=== PATIENT | female | born 1975 | race Caucasian/White ===

== ENCOUNTER 2019-09-02 00:20 | Outpatient (CLI) | payer OTHER, SELFPAY ==
[2019-09-03 00:19] LABS: SARS-CoV-2 RNA PCR Negative
== END 2019-09-02 00:21 | disposition home or self-care (01) ==
LOC: ANHCOVIDDT 00:21
PROVIDERS: Anesthesiology; PCP Internal Medicine; Visit Provider Urology
DX: Z01.818 Encounter for other preprocedural examination (principal); Z11.59 Encounter for screening for other viral diseases
CPT/HCPCS: 87635; C9803; U0003

== ENCOUNTER 2019-09-05 01:40 | Day surgery (SDC) | payer OTHER, SELFPAY ==
[2019-08-23 15:07] VITALS: BMI 34.7
--- NOTE | 2019-09-05 07:21 | WPDHPUPDATE1 ---
History and Physical Update Update Date/Time: 09/05/19 07:21 History and Physical has been reviewed, including an updated exam of the patient. There are NO changes in the patient's condition. Risks, benefits, and alternatives have been discussed and questions answered. Patient agrees to proceed with procedure.
[2019-09-05 10:10] VITALS: BP 133/84; PULSE 69; RESP 16; TEMP 36.4; O2SAT 99; BMI 37.5
[2019-09-05] MEDS: LACTATED RINGERS 1,000 ML 30 ML IV CONT (10:10)
--- NOTE | 2019-09-05 10:31 | PM.PROC ---
Procedure Note - Detailed Pre-op diagnosis: stress incontinence Stress urinary incontinence Post-op diagnosis: same Procedure performed: Transobturator Mid-urethral sling Cystoscopy Description of procedure: This is a patient with confirmed stress urinary incontinence. She desires correction. She understands the risks of bleeding, infection, damage to the urinary tract, lack of cure of stress incontinence, recurrence of stress incontinence, postoperative voiding dysfunction including incontinence and retention, need for ancillary procedures to loosen remove the sling, postoperative voiding dysfunction including retention and overactive bladder, hip and leg pain, dyspareunia, mesh related complications including exposure and extrusion. She agrees to proceed. She understands it will not help overactive bladder symptoms if present. She was correctly identified and informed consent obtained. She is brought to the operating room. She was given appropriate anesthesia. She was placed in the dorsal lithotomy position. All pressure points were padded. She was given appropriate perioperative antibiotics and a time-out performed. A Meyers catheter is placed. I marked out the thigh incisions anesthetize the skin and made those incisions. I anesthetized the anterior vaginal wall over the mid urethra. I made a 1 cm incision. I dissected out laterally taking great care not to injure the urethra or the vaginal wall. Passed the helical trocars 1st on the left and then on the right from the thigh incision towards the vaginal incision. Sling was connected to the trocars and brought out through the thigh incision. I tensioned the sling appropriately. I cut and removed the plastic sheaths. I closed the incision with 2 0 Vicryl. I then performed cystoscopy. There was no surgical artifact or abnormalities inside the bladder. The urethra was normal without surgical artifact. I cut the excess sling material. I closed the incisions with glue. She was awakened and transferred to the PACU in stable condition. Implants: Mid urethral sling Surgeon: Sarabjit Godinez MD Drains: No Packing: No Pathology: none sent Complications: No immediate complications Condition: stable Disposition: PACU
--- NOTE | 2019-09-05 10:35 | WPDANESEPPF ---
Anes - Initial Pre Proc Eval Procedure: Operation Date: 09/05/19 11:15 Proposed Procedures p Urethral Sling - Sarabjit Godinez MD Date/Time: 09/05/19 10:35 Surgeon: Sarabjit Godinez MD Pre Op Diagnosis: stress incontinence Patient Data Age: 44 Gender: F Height: 5 ft 10 in Weight: 110 kg Allergies Allergy/AdvReac Type Severity Reaction Status Date / Time No Known Allergies Allergy Unknown Verified 09/05/19 10:33 Home Medications Medication Instructions Recorded Confirmed Type doxycycline hyclate 100 mg PO DAILY 08/23/19 09/05/19 History Patient hx anesthesia problems: none Family hx anesthesia problems: none PMFSH Social History Social History Gender identity (if verbalized by the patient): Female Anes - Eval Final PreProcedure Day of Procedure 09/05/19 10:35 Patient weight: obese Heart: regular rate and rhythm Lungs: clear to auscultation Airway: Mallampati scale class II Neurological: alert and oriented Last oral intake: >/= 8 hours ASA classification: II Emergent: no Anesthetic plan: proceed Anesthesia type and monitoring: general GIVS and standard monitoring Informed Consent: The patient's anesthetic plan and its attendant risks and benefits were discussed with the patient/family/POA. Questions were solicited and answers provided to the satisfaction of the patient/family/POA.
[2019-09-05] MEDS: ceFAZolin 2 GM/D5W 50 ML 2 GM/50 ML BAG IVPB (10:43)
[2019-09-05] MEDS: BUPIVACAINE/EPINEPHRINE 0.25% 50 ML VIAL 10 ML INFILTRATE (10:59)
[2019-09-05 11:20] VITALS: BP 104/63; PULSE 71; RESP 14; O2SAT 94
[2019-09-05 11:50] VITALS: BP 124/69; PULSE 63; RESP 14; O2SAT 95
[2019-09-05 12:20] VITALS: BP 133/83; PULSE 61; RESP 14; O2SAT 97
== END 2019-09-05 12:29 | disposition home or self-care (01) ==
PROVIDERS: PCP Internal Medicine; Visit Provider Urology
PROC: (CPT 57288; principal; 2019-09-05 11:15)
DX: N39.3 Stress incontinence (female) (male) (principal); E66.9 Obesity, unspecified; Z68.37 Body mass index [BMI] 37.0-37.9, adult
CPT/HCPCS: 57288; 87635; A9270; C1771; C9803; J0690; J2250; J3010; J7030; J7120; U0003

== ENCOUNTER 2022-08-19 14:30 | Outpatient (CLI) | payer OTHER, SELFPAY ==
--- NOTE | 2022-08-19 | ECHO_ITS ---
Patient Info Name: Arlet Lechuga Age: 47 years : 1975 Gender: Female Ht: 70 in Wt: 260 lbs BSA: 2.46 m2 HR: 69 bpm BP: 146 / 94 mmHg Heart Rhythm: Sinus Rhythm Technical Quality: Fair Exam Date: 08/19/2022 2:46 PM Exam Location: [facility] Patient Status: Outpatient Admit Date: 08/19/2022 Staff Ordering Physician: PeterXavier MD Food Stylist: Yas Doran RDCS Attending Provider: BrunaXavier MD Exam Type: CA echo doppler color flow Study Info Indications - EDEMA Complete two-dimensional, color flow and Doppler transthoracic echocardiogram is performed. Summary 1. Complete two-dimensional, color flow and Doppler transthoracic echocardiogram is performed. 2. Left ventricular chamber dimension is normal. 3. Left ventricular systolic function is normal, estimated at 65-70%. 4. There is mildly increased left ventricular wall thickness. 5. The left ventricular diastolic function is grade I diastolic dysfunction. 6. Right ventricular systolic function is normal. 7. Left atrial chamber dimension is mildly enlarged. 8. There is trace mitral valve regurgitation. 9. There is mild tricuspid valve regurgitation. Left Ventricle Left ventricular chamber dimension is normal. Left ventricular systolic function is normal, estimated at 65-70%. There is mildly increased left ventricular wall thickness. The left ventricular diastolic function is grade I diastolic dysfunction. Right Ventricle Right ventricular chamber dimension is normal. Right ventricular systolic function is normal. Left Atria Left atrial chamber dimension is mildly enlarged. Right Atria Right atrial chamber dimension is normal. Aortic Valve The aortic valve is probable trileaflet. There is no aortic valve stenosis. There is no aortic valve regurgitation. Pulmonic Valve The pulmonic valve is not well visualized. Mitral Valve The mitral valve has thickened leaflets. There is trace mitral valve regurgitation. Tricuspid Valve There is mild tricuspid valve regurgitation. Pericardium/Pleural There is no pericardial effusion. Inferior Vena Cava Inferior vena cava is not well visualized. Aorta The aortic root size at the sinus of Valsalva is normal. Left Ventricular Outflow Tract Name Value Normal LVOT 2D LVOT Diameter 2.1 cm LVOT Doppler LVOT Peak Gradient 3 mmHg LVOT Mean Gradient 1 mmHg LVOT VTI 18 cm LVOT VTI/AV VTI Ratio 0.8 LVOT Stroke Volume 63 ml LVOT CO 4.2 l/min LVOT CI 1.7 l/min/m2 Pulmonic Valve Name Value Normal RVOT Doppler RVOT Peak Gradient 2 mmHg PV Doppler PV Peak Gradient 1 mmHg Mitral Valve
== END 2022-08-19 14:31 | disposition home or self-care (01) ==
PROVIDERS: PCP Internal Medicine; Visit Provider Internal Medicine
DX: R60.9 Edema, unspecified (principal); I07.1 Rheumatic tricuspid insufficiency
CPT/HCPCS: 93306

== ENCOUNTER 2023-03-26 05:51 | Day surgery (SDC) | payer OTHER, SELFPAY ==
[2023-02-10 13:22] VITALS: BMI 38.0
[2023-03-10 10:13] VITALS: BMI 37.3
[2023-03-26 06:46] VITALS: BP 128/92; PULSE 77; RESP 14; TEMP 36.7; O2SAT 99
[2023-03-26] MEDS: LACTATED RINGERS 1,000 ML 150 ML IV CONT (06:55)
--- NOTE | 2023-03-26 07:12 | P.HP_ITS ---
History of Present Illness History of Present Illness Consent: Risks, benefits, and alternatives have been discussed and questions answered. Patient agrees to proceed with procedure. Chief complaint: Neoplasm Screening Narrative: Arlet Lechuga is a 47 year old female presents for screening colonoscopy. Patient's current weight appetite and bowel movements are normal. Patient denies abdominal pain. She has had no bleeding. Family history noncontributory. Review of Systems Review of Systems: Review of systems noncontributory. [facility] Past Medical History Medical History Acne Screening mammogram, encounter for Surgical History Surgical History History of appendectomy (~1997) History of bladder suspension procedure (~08/2019) Family History Family History Mother Hypertension Father Deep vein thrombosis Cardiac pacemaker in situ Social History Social History Smoking status: Never smoker Alcohol intake: never Substance use: never Substance use type: does not use Living arrangements: with family Additional living arrangements comments: Occupation/Education: occupation Additional occupation/education comments: payroll Gender identity (if verbalized by the patient): Female Sexual Orientation (if Verbalized by the Patient): Straight or Heterosexual Spiritual care concerns: No Meds Home Medications and Allergies Home Medications Medication Instructions Recorded Confirmed Type doxycycline hyclate 100 mg capsule 100 mg PO DAILY 08/23/19 03/26/23 History Adults Multivitamin 1 tablet PO DAILY 03/10/23 03/26/23 History Allergies Allergy/AdvReac Type Severity Reaction Status Date / Time No Known Allergies Allergy Unknown Verified 03/26/23 06:41 Vital Signs Vital Signs - 24 hr 03/26/23 06:46 Temperature 98.0 F Pulse Rate 77 Respiratory Rate 14 Blood Pressure 128/92 H Pulse Oximetry 99 Oxygen Delivery Room Air Exam Narrative: Physical exam reveals patient to be alert. L signs stable. HEENT exam is unremarkable. Patient is anicteric. Lungs are clear to auscultation and percussion heart is without murmur or extra sounds. Abdomen bowel sounds are present soft nontender with no or megaly. Digital external rectal exam is normal. Assessment and Plan Assessment and plan (1) Encounter for screening colonoscopy: Code(s): Z12.11 - Encounter for screening for malignant neoplasm of colon Status: Acute Assessment and Plan: Presents today for screening colonoscopy. She appears to be at average risk for colon polyps. Further recommendations may be given after endoscopy.
--- NOTE | 2023-03-26 07:23 | WPDANESEPPF ---
Anes - Initial Pre Proc Eval Procedure: Operation Date: 03/26/23 08:00 Proposed Procedures p Screening Colonoscopy - Roni Lopez MD Date/Time: 03/26/23 07:23 Surgeon: Roni Lopez MD Pre Op Diagnosis: Neoplasm Screening Patient Data Age: 47 Gender: F Height: 1.78 m Weight: 120 kg Last Vital Signs Temp 36.7 C 03/26/23 06:46 Pulse 77 03/26/23 06:46 Resp 14 03/26/23 06:46 BP 128/92 H 03/26/23 06:46 Pulse Ox 99 03/26/23 06:46 O2 Del Method Room Air 03/26/23 06:46 Allergies Allergy/AdvReac Type Severity Reaction Status Date / Time No Known Allergies Allergy Unknown Verified 03/26/23 06:41 Home Medications Medication Instructions Recorded Confirmed Type doxycycline hyclate 100 mg capsule 100 mg PO DAILY 08/23/19 03/26/23 History Adults Multivitamin 1 tablet PO DAILY 03/10/23 03/26/23 History Patient hx anesthesia problems: none Family hx anesthesia problems: none Results Review: All pre-operative results and documents have been reviewed as part of the pre-operative evaluation. 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 Gender identity (if verbalized by the patient): Female Sexual Orientation (if Verbalized by the Patient): Straight or Heterosexual Spiritual care concerns: No Anes - Eval Final PreProcedure Day of Procedure 03/26/23 07:23 Patient weight: obese Heart: regular rate and rhythm Lungs: clear to auscultation Airway: Mallampati scale class II Neurological: alert and oriented Last oral intake: >/= 8 hours ASA classification: II Emergent: no Anesthetic plan: proceed Anesthesia type and monitoring: general GIVS and standard monitoring Results Review: All pre-operative results and documents have been reviewed as part of the pre-operative evaluation. Informed Consent: The patient's anesthetic plan and its attendant risks and benefits were discussed with the patient/family/POA. Questions were solicited and answers provided to the satisfaction of the patient/family/POA.
[2023-03-26 07:52] VITALS: BP 92/60; PULSE 77; RESP 14; O2SAT 98
[2023-03-26 08:02] VITALS: BP 130/92; PULSE 65; RESP 14; O2SAT 100
[2023-03-26 08:12] VITALS: BP 136/84; PULSE 65; RESP 14; O2SAT 100
--- NOTE | 2023-03-26 08:34 | SUR.PHASEII ---
0830 Ready for discharge home, awaiting ride
--- NOTE | 2023-03-26 08:39 | WPDANESPN ---
Anes - Prog Note Post-Op Date/Time: 03/26/23 08:39 Cardiovascular status: normal Respiratory status: normal Airway patency: baseline Mental status: baseline Post-Op hydration status: normal Vital Signs: Last Vital Signs Temp 36.7 C 03/26/23 06:46 Pulse 65 03/26/23 08:12 Resp 14 03/26/23 08:12 BP 136/84 03/26/23 08:12 Pulse Ox 100 03/26/23 08:12 O2 Del Method Room Air 03/26/23 08:12 Pain Score (VAS): 0/10 I/O: Intake & Output 03/25/23 03/26/23 03/26/23 23:59 07:59 15:59 Intake Total 300 475 Balance 300 475 Patient Feedback: Patient satisfied with anesthetic care.
== END 2023-03-26 08:45 | disposition home or self-care (01) ==
PROVIDERS: PCP Internal Medicine; Visit Provider Internal Medicine Gastroenterology
PROC: 0DJD8ZZ Inspection of Lower Intestinal Tract, Via Natural or Artificial Opening Endoscopic (ICD-10-PCS; CPT 45378; principal; 2023-03-26 08:00)
DX: Z12.11 Encounter for screening for malignant neoplasm of colon (principal); K64.8 Other hemorrhoids
CPT/HCPCS: 45378

== ENCOUNTER 2023-09-14 15:45 | Outpatient (CLI) | payer OTHER, SELFPAY ==
--- NOTE | ~2023-09-14 | XR_ITS ---
EXAM: XR wrist RT min 3V DATE: 09/14/2023 15:55 HISTORY: PAIN IN RT WRIST for 6 months no injury . COMPARISON: None available. FINDINGS: Normal mineralization. No fracture or dislocation. No lytic or blastic lesion. Joint space s are maintained. No erosion or periosteal change. Soft tissues within normal limits. IMPRESSION: Normal right wrist radiograph findings. Reviewed, dictated and finalized at location K.
== END 2023-09-14 15:46 ==
PROVIDERS: PCP Internal Medicine; Visit Provider Internal Medicine
DX: M25.531 Pain in right wrist (principal)
CPT/HCPCS: 73110